=== PATIENT | male | born 1985 | race Caucasian/White ===

== ENCOUNTER 2020-05-01 12:54 | Outpatient (CLI) | payer OTHER ==
[~2020-05-01 12:54] MED LIST: BUPIVACAINE/PF 0.5% ONE; LIDOCAINE 1%, 10ML ONE; ROPivacaine/PF 0.2%, 10 ML ONE; SODIUM BICARBONATE 4.2%, 5ML ONE
[2020-05-01] MEDS ORDERED: LIDOCAINE 1%, 10ML ONE (13:25)
[2020-05-01] MEDS ORDERED: OMNIPAQUE 300 MG/ML, 10ML VIAL ONE (14:36)
== END 2020-05-01 23:59 | disposition home or self-care (01) ==
LOC: RAD 12:54
PROVIDERS: ATTEND Physician Assistant Surgical
DX: M25.512 Pain in left shoulder (principal); M25.312 Other instability, left shoulder
CPT/HCPCS: 23350; 73040; 73222; J3490; Q9967; J2795